=== PATIENT | female | born 1960 | race Hispanic/Latino ===

== ENCOUNTER 2017-12-06 05:55 | Day surgery (SDC) | payer MEDICARE ==
[~2017-12-06 05:55] MED LIST: ANCEF/STERILE WATER 2 GM/20 ML IV NR; LACTATED RINGERS 1,000 ML IV SCH; VERSED IV NR
[2017-12-06] MEDS ORDERED: NACL BACTERIOSTATIC INFILTRATI ONE (06:26)
[2017-12-06] MEDS ORDERED: MARCAINE 0.5% 30 ML INFILTRATI ONE (07:18)
[2017-12-06] MEDS ORDERED: XYLOCAINE 1%/ EPI 1:100,000 INFILTRATI ONE (07:19)
[2017-12-06] MEDS ORDERED: BACITRACIN ONE (07:19)
[2017-12-06] MEDS ORDERED: POLYMYXIN B SULFATE IV ONE (07:19)
[2017-12-06] MEDS ORDERED: NACL P/F VIAL (10 ML) 10 ML ONE (07:20)
[2017-12-06] MEDS ORDERED: DECADRON ONE (07:28)
[2017-12-06] MEDS ORDERED: QUELICIN ONE (07:28)
[2017-12-06] MEDS ORDERED: ZOFRAN ONE (07:28)
[2017-12-06] MEDS ORDERED: SUBLIMAZE ONE ×2 (07:29→09:29)
[2017-12-06] MEDS ORDERED: DIPRIVAN 10 MG/ML IV ONE (07:29)
--- NOTE | 2017-12-06 07:30 | Anesthesia Day of Surgery ---
Anesthesia Day of Surgery - Day of Surgery Patient Examined: Yes Patient H&P Reviewed: Yes Patient is NPO: Yes
--- NOTE | 2017-12-06 07:31 | Anesthesia Consultation ---
Anesthesia Consult and Med Hx Date of service: 12/06/17 - Airway Anesthetic Teeth Evaluation: Poor ROM Head & Neck: Adequate Mental/Hyoid Distance: Adequate Mallampati Class: Class II Intubation Access Assessment: Probably Good - Pulmonary Exam CTA: Yes - Cardiac Exam Cardiac Exam: RRR - Pre-Operative Health Status ASA Pre-Surgery Classification: ASA3 Proposed Anesthetic Plan: General - Pulmonary Hx Smoking: No Hx Asthma: Yes (INHALER PRN) Hx Sleep Apnea: Yes (DX SLEEP APNEA , NO CPAP USE) - Cardiovascular System Hx Hypertension: No (TAKES METOPROLOL TO PROTECT HEART) - Central Nervous System Hx Back Pain: Yes (BACK AND NECK PAIN WITH MARYSOL LEG PAIN/WEAKNESS) - Endocrine Hx Non-Insulin Dependent Diabetes: Yes - Hematic Hx Anemia: Yes (NOT RECENT) - Other Systems Hx Cancer: No
[2017-12-06 07:35] LABS: Alanine Aminotransferase 27 units/L (7-56); Albumin 3.5 g/dL (3.9-5); BUN/Creatinine Ratio 29; Blood Urea Nitrogen 23 mg/dL (7-17); Calcium 8.9 mg/dL (8.4-10.2); Hemolysis Index 2
[2017-12-06] MEDS ORDERED: VERSED ONE (07:57)
[2017-12-06] MEDS ORDERED: ePHEDrine 50 MG/5 ML-0.9% NACL IV ONE (08:03)
[2017-12-06] MEDS ORDERED: XYLOCAINE 1%/ EPI 1:100,000 IV ONE (08:31)
[2017-12-06] MEDS ORDERED: MARCAINE 0.5% INFILTRATI ONE (08:31)
[2017-12-06] MEDS ORDERED: LACTATED RINGERS 1,000 ML ONE ×2 (08:57→12:24)
[2017-12-06] MEDS ORDERED: BACITRACIN IR ONE ×2 (09:03→10:00)
[2017-12-06] MEDS ORDERED: ANTIBIOTIC OINT TP ONE ×2 (09:42→12:50)
[2017-12-06] MEDS ORDERED: DILAUDID IV PRN (10:28)
[2017-12-06] MEDS ORDERED: ZOFRAN IV PRN (10:28)
[2017-12-06] MEDS ORDERED: ANCEF ONE (12:08)
[2017-12-06] MEDS ORDERED: DILAUDID ONE (12:11)
--- NOTE | 2017-12-06 13:52 | Short Stay Summary ---
Short Stay Documentation Date of service: 12/06/17 - History Principal diagnosis: Post Laminectomy Syndrome H&P: obtained from office Past Medical History: diabetes, hypertension, liver disease, migraines Past Surgical History: Other (Lumbar Laminectomy) Social history: , lives with family - Allergies and Medications Current Medications: Allergies chlorzoxazone [From Parafon Forte] Allergy (Verified 11/26/17 16:53) Itching clindamycin Allergy (Verified 11/26/17 16:53) Shortness of Breath sumatriptan [From Imitrex] Allergy (Verified 11/26/17 16:53) Shortness of Breath tizanidine Adverse Reaction (Verified 12/06/17 07:35) Nausea and vomiting topiramate [From Topamax] Adverse Reaction (Verified 12/06/17 07:35) hallucination Home Medications Medication Instructions Recorded Confirmed Last Taken Type Albuterol Sulfate [Albuterol 0.63% 0.63 mg IH TID PRN 11/26/17 11/26/17 Unknown History NEBS] Albuterol Sulfate [Ventolin Hfa] 18 gm IH PRN PRN 11/26/17 12/06/17 Unknown History Diazepam [Valium] 5 mg PO BID 11/26/17 12/06/17 12/05/17 23:30 History Furosemide [Lasix TAB] 40 mg PO BID 11/26/17 12/06/17 12/05/17 23:30 History Gabapentin [Neurontin] 400 mg PO TID 11/26/17 12/06/17 12/05/17 23:30 History HYDROcodone/APAP 10-325 [[place] 1 each PO Q8HR PRN 11/26/17 12/06/17 12/05/17 23: 30 History 10/325] Insulin Glargine,Hum.rec.anlog 50 units SQ BID 11/26/17 12/06/17 12/05/17 23:30 History [Toumariajose Solostar] Lispro Insulin [Humalog] 1 unit SQ TID 11/26/17 12/06/17 12/05/17 23:30 History Metoprolol [Lopressor] 25 mg PO BID 11/26/17 12/06/17 12/05/17 23:30 History [place]-3/Dha/Epa/Fish Oil [Fish Oil 1 each PO DAILY 11/26/17 12/06/17 11/21/17 09 :00 History 1,000 mg Softgel] Pantoprazole [Protonix] 40 mg PO QDAY 11/26/17 12/06/17 12/05/17 23:30 History Potassium Chloride [Klor-Con 10 meq PO DAILY 11/26/17 12/06/17 12/05/17 23:30 History Sprinkle] Sitagliptin Phos/Metformin HCl 1 tab PO BID 11/26/17 12/06/17 12/05/17 23:30 History [Janumet 50-1,000 mg] Zolpidem [Ambien] 10 mg PO QHS 11/26/17 12/06/17 12/05/17 23:30 History Active Medications Cefazolin Sodium (Ancef/Sterile Water 2 Gm/20 Ml) 2 gm IV PREOP NR Stop: 12/06/17 23:59 Lactated Ringer's (Lactated Ringers) 1,000 mls @ 100 mls/hr IV DIRECT IKE Last Admin: 12/06/17 07:00 Dose: 100 mls/hr Midazolam HCl (Versed) 2 mg IV PREOP NR Stop: 12/06/17 23:59 - Physical exam General appearance: obese, malodorous Integumentary: other (diffuse rash with yeast infection associated with large panniculus) Lungs: Clear to auscultation Breasts: deferred Heart: Regular rate Gastrointestinal: normal Female Genitourinary: deferred Rectal Exam: deferred Extremities: abnormal (Marked non pitting edema) Neurological: Normal speech, Strength at 5/5 X4 ext, Sensation intact, Cranial nerves 3-12 NL - Brief post op/procedure progress note Date of procedure: 12/06/17 Pre-op diagnosis: Post Laminectomy Syndrome Anesthesia: GETA Surgeon: SERA MOE Experimental Electronics Developer: JAILENE BALL Estimated blood loss: other (15 ml) Pathology: none Specimen disposition: to lab Condition: stable - Hospital course Hospital course: Patient observed in the postoperative anesthesia care unit for approximately 2 hours. Discharged in stable condition. - Disposition Condition at discharge: Good Disposition: [id number] HOME UNDER HOME [facility] - Discharge Diagnoses (1) Alisha infection of flexural skin Status: Acute Short Stay Discharge Plan Follow up with: MOMO SALGUERO [Other] - 14 Days
[2017-12-06 14:31] VITALS: BP 138/65
--- NOTE | 2017-12-06 14:48 | XRay Report ---
AP AND LATERAL LUMBOSACRAL SPINE: History: Post laminectomy syndrome, spinal cord stimulator placement PA and lateral fluoroscopic images of the thoracolumbar junction were obtained during neurostimulator placement. The neurostimulator appears in good position terminating at the level of T6-7. No acute process is noted. IMPRESSION: Neurostimulator as described.
--- NOTE | 2017-12-06 14:48 | Operative Report ---
Operative Report Operative Report: Preoperative Diagnoses: 1. Post laminectomy syndrome. 2. Bilateral Lumbar radiculopathy. 3. Degenerative disc disease the lumbar spine. Postoperative diagnosis: 1. Same. Procedure: 1. Percutaneous insertion of dual octapolar epidural leads -thoracic spine. 2. Implantation of pulse generator/business machine operator. 3. Post operative programming of implanted neurostimulator -30 minutes. Surgeon: Ignacio Nowak MD. Asst.: Ashkan Felix MD. Anesthesia: General endotracheal. Estimated blood loss: 15 mL Complications: None. Indication: The patient is a 57-year-old female with morbid obesity. She has a history of chronic axial low back pain secondary to degenerative disc disease and postlaminectomy syndrome as well as bilateral lower extremity radiculopathy. She has undergone extensive conservative management including chronic opioid therapy. She was evaluated by spine surgery and found to be a poor candidate for open surgical procedure. She underwent neurostimulator trial with greater than 70% pain relief and reduction in opioid intake. Based on the success of the trial, she was felt to be an excellent candidate for neurostimulator implantation. Patient underwent psychological evaluation and no contraindication was identified. She now presents for permanent implantation. Procedure: Upon informed consent, the patient was brought to the operative suite and period general endotracheal anesthesia was induced. The patient was then carefully turned onto the operative table in the prone position. All pressure points were meticulously padded. She received 2 g of cefazolin intravenously for antibiotic prophylaxis. The back was sterilely prepped and draped in routine fashion. Attention was initially turned to the thoracolumbar junction. Using a 14-gauge Tuohy needle, the needle was advanced to the interlaminar space on the left at T12-L1. The epidural space was entered using [id number] technique. Aspiration was negative for blood and CSF. Guidewire was easily passed into the dorsal epidural space. This was followed by placement of a 60 cm octapolar lead ([employer], [employer], [id number]) which was guided using fluoroscopic assistance into the lower thoracic space to the left of midline with the superior contact overlying the superior aspect of T7. Using parallel technique, placement of a second epidural lead was attempted however lead could not be advanced cephalad to T11-12. Therefore, the Tuohy needle was redirected on the left at L1-2 and the second 60 cm epidural lead was advanced into the posterior epidural space at L1-2 on the left ([employer]rode, [employer] [id number]), and advanced to the upper T7 level , to the right of midline. Once placement was deemed to be satisfactory in both AP and lateral projections , a 7 cm paramedian skin incision was made with a #10 blade after infiltration of 0.5% bupivacaine. Using sharp and blunt dissection through extensive adipose tissue with electrocautery for hemostasis, the dorsal lumbar fascia was identified. The adipose tissue was stripped off the dorsal fascia. The Tuohy needles were removed and Miller-Lock anchors ( Lot [id number]) were used to anchor the leads to the dorsal epidural fascia with 2-0 silk sutures. The leads were locked into the anchors and the leads appeared to be secure. Lead position was again confirmed with fluoroscopy. The incision was irrigated with bacitracin- containing solution. A second 5 cm incision was made a #10 blade over the left flank, superior to the iliac crest. Using sharp and blunt dissection, a pocket was created within the subcutaneous fat. Hemostasis was achieved with electrocautery. The pocket was irrigated in no active bleeding was identified. The tunneling device was then inserted and the leads were passed from the paramedian incision to the pocket and connected to the IPG ([employer] [address] [employer] SN [id number]) . Impedance was found to be satisfactory. The pulse generator was then placed into the pocket satisfactory fit. The wound was again irrigated with antibiotic containing solution. The paramedian incision was closed in 3 layers with deep 0 Vicryl interrupted sutures, subcutaneous 2-0/3-0 Vicryl interrupted sutures and skin edges were approximated with stainless steel rupali. The incision over the IPG was closed in 3 layers with deep 0 Vicryl, 3-0 Vicryl, and 3-0 Prolene running subcuticular subcuticular suture. Sterile dressings were applied. Patient was then turned onto the gurney in the supine position and extubated. She was taken to the recovery room where she was noted to be in stable cardiopulmonary neurologic condition. In the recovery room 30 minutes were spent programming the neurostimulator system. The pulse generator/business machine operator was activated and programmed including frequency, pulse width, pulse amplitude and pulse duration. Impedance was get down to be satisfactory. Patient was provided with 3 programs for initial use. Disposition: Patient was discharged to home in good condition. Follow up with home health care. Prescription was given for Keflex 500 mg twice a day for 5 days. Follow-up: Return to clinic in one week for follow-up evaluation.reoperative diagnosis:
== END 2017-12-06 15:00 | disposition home health service (06) ==
LOC: OR 05:55
PROVIDERS: ATTEND Radiology Diagnostic Radiology
DX: M96.1 Postlaminectomy syndrome, not elsewhere classified (principal); M51.16 Intervertebral disc disorders with radiculopathy, lumbar region; J45.909 Unspecified asthma, uncomplicated; G47.30 Sleep apnea, unspecified; E11.9 Type 2 diabetes mellitus without complications; Z88.1 Allergy status to other antibiotic agents; Z88.8 Allergy status to other drugs, medicaments and biological substances; Z79.899 Other long term (current) drug therapy
CPT/HCPCS: 36415; 63650; 63685; 72100; 80053; 82962; 87076; 87116; 87186; C1767; C1778; J0330; J0690; J1100; J1170; J2250; J2405; J2704; J3010; J7120